=== PATIENT | female | born 1940 | race Caucasian/White ===

== ENCOUNTER 2017-12-29 13:35 | Inpatient (IN) ==
--- NOTE | 2017-12-29 15:00 | Emergency Department Note ---
Disposition Clinical Impression: Shortness of breath, NSTEMI (non-ST elevated myocardial infarction) Disposition: Admitted As Inpatient Condition: Fair General Adult HPI - General Chief complaint: ED Shortness of Breath/Dyspnea Stated complaint: JOEL Time Seen by Provider: 12/29/17 14:33 Source: patient - History of Present Illness Pain Scale: 0 - Related Data Home Medications Medication Instructions Recorded Confirmed Aspirin Enteric Coated [Aspirin EC] 81 mg PO DAILY 12/29/17 12/29/17 Calcium Carbonate [Calcium] 600 mg PO BID 12/29/17 12/29/17 Flaxseed Oil [[place]-3 Flaxseed Oil] 1,000 mg PO DAILY 12/29/17 12/29/17 Glucosamine Sulfate Dipot Chlr 1,000 mg PO DAILY 12/29/17 12/29/17 [Glucosamine] Losartan Potassium [Cozaar] 50 mg PO DAILY 12/29/17 12/29/17 Multivitamin [One Daily 1 each PO DAILY 12/29/17 12/29/17 Multivitamin] Simvastatin [Zocor] 20 mg PO HS 12/29/17 12/29/17 Allergies Allergy/AdvReac Type Severity Reaction Status Date / Time Penicillins Allergy Hives Verified 04/02/17 11:08 acetaminophen [From Percocet] AdvReac Vomiting Verified 04/02/17 11:08 celecoxib [From Celebrex] AdvReac Palpitation Verified 04/02/17 11:08 s clindamycin AdvReac Heartburn Verified 04/02/17 11:08 Erythromycin Base AdvReac Heartburn Verified 04/02/17 11:08 hydrocodone [From Vicodin] AdvReac Vomiting Verified 04/02/17 11:08 naproxen [From Naprosyn] AdvReac Palpitation Verified 04/02/17 11:08 s NSAIDS (Non-Steroidal AdvReac Palpitation Verified 04/02/17 11:08 Anti-Inflamma s Oxycodone [From Percocet] AdvReac Vomiting Verified 04/02/17 11:08 propoxyphene AdvReac Vomiting Verified 04/02/17 11:08 [From Darvocet-N] Past Medical History - Past Medical History Medical history: Reports: hyperlipidemia, hypertension, other Surgical history: Reports: cataract, orthopedic, other, other Psychiatric history: Reports: no psych history - Social History Smoking Status: Never smoker Alcohol use: Reports: none Drug use: Reports: none Physical Exam - General General appearance: alert, in no apparent distress Course Vital Signs Temperature 97.6 F 12/29/17 13:37 Pulse Rate 72 12/29/17 13:37 Respiratory Rate 16 12/29/17 13:37 Blood Pressure 189/92 12/29/17 13:37 O2 Sat by Pulse Oximetry 95 12/29/17 13:37 Temperature 97.9 F 12/31/17 11:00 Pulse Rate 70 12/31/17 11:00 Respiratory Rate 16 12/31/17 11:00 Blood Pressure 135/72 12/31/17 11:00 O2 Sat by Pulse Oximetry 97 12/31/17 11:00 Oxygen Delivery Oxygen Delivery Room Air Medical Decision Making - Lab Data Result diagrams: 12/31/17 04:21 12/31/17 04:21 Lab Results 12/29/17 12/29/17 12/29/17 Range/Units 15:02 15:02 15:05 WBC 7.7 (4.3-11.1) K/mcL RBC 4.27 (3.82-4.97) M/mcL Hgb 13.6 (11.5-15.4) g/dL Hct 40.6 (35.3-44.9) % MCV 95.1 (83.0-100.0) fL MCH 31.9 (28.0-33.3) pg MCHC 33.5 (31.6-35.5) g/dL RDW 12.8 (11.5-14.5) % Plt Count 151 (140-400) K/mcL MPV 10.6 (9.4-12.4) fL Immature Gran % 0.4 (0-4) % Seg Neutrophils % 48.5 % Lymphocytes % 36.5 % Monocytes % 12.6 % Eosinophils % 1.6 % Basophils % 0.4 % Neutrophils # 3.7 (1.6-8.9) K/mcL Lymphocytes # 2.8 (0.6-4.6) K/mcL Monocytes # 1.0 (0.0-1.3) K/mcL Eosinophils # 0.1 (0.0-0.6) K/mcL Basophils # 0.0 (0.0-0.2) K/mcL Nucleated RBCs/100 WBC (0) /100 WBC PT 12.0 (9.4-12.1) Seconds INR 1.1 APTT (26.0-36.0) Seconds Heparin Anti-Xa, Unfract Sodium 140 (136-145) mEq/L Potassium 4.1 (3.5-5.1) mEq/L Chloride 105 (98-107) mEq/L Carbon Dioxide 25 (23-29) mEq/L BUN 16 (8-23) mg/dL Creatinine 0.65 (0.60-1.20) mg/dL Est GFR ( Amer) > 60 (> 60) Est GFR (Non-Af Amer) > 60 (> 60) BUN/Creatinine Ratio 25 (6-26) Glucose 122 H (70-105) mg/dL Calculated Osmolality 292 (280-300) Calcium 9.8 (8.6-10.3) mg/dL Magnesium (1.6-2.6) mg/dL Troponin I 0.04 H* (< 0.04) ng/mL B-Natriuretic Peptide (Less than 100) pg/mL Triglycerides (< 150) mg/dL Cholesterol (< 200) mg/dL LDL Cholesterol, Calc (0-99) mg/dL VLDL Cholesterol, Calc (< 31) mg/dL HDL Cholesterol (40-59) mg/dL Cholesterol/HDL Ratio (0-4.9) 12/29/17 12/29/17 12/29/17 Range/Units 15:05 21:09 21:09 WBC 6.5 (4.3-11.1) K/mcL RBC 4.23 (3.82-4.97) M/mcL Hgb 13.4 (11.5-15.4) g/dL Hct 40.8 (35.3-44.9) % MCV 96.5 (83.0-100.0) fL MCH 31.7 (28.0-33.3) pg MCHC 32.8 (31.6-35.5) g/dL RDW 12.7 (11.5-14.5) % Plt Count 158 (140-400) K/mcL MPV 10.0 (9.4-12.4) fL Immature Gran % (0-4) % Seg Neutrophils % % Lymphocytes % % Monocytes % % Eosinophils % % Basophils % % Neutrophils # (1.6-8.9) K/mcL Lymphocytes # (0.6-4.6) K/mcL Monocytes # (0.0-1.3) K/mcL Eosinophils # (0.0-0.6) K/mcL Basophils # (0.0-0.2) K/mcL Nucleated RBCs/100 WBC (0) /100 WBC PT (9.4-12.1) Seconds INR APTT (26.0-36.0) Seconds Heparin Anti-Xa, Unfract Sodium (136-145) mEq/L Potassium (3.5-5.1) mEq/L Chloride (98-107) mEq/L Carbon Dioxide (23-29) mEq/L BUN (8-23) mg/dL Creatinine (0.60-1.20) mg/dL Est GFR ( Amer) (> 60) Est GFR (Non-Af Amer) (> 60) BUN/Creatinine Ratio (6-26) Glucose (70-105) mg/dL Calculated Osmolality (280-300) Calcium (8.6-10.3) mg/dL Magnesium (1.6-2.6) mg/dL Troponin I 0.06 H* (< 0.04) ng/mL B-Natriuretic Peptide 160 H (Less than 100) pg/mL Triglycerides (< 150) mg/dL Cholesterol (< 200) mg/dL LDL Cholesterol, Calc (0-99) mg/dL VLDL Cholesterol, Calc (< 31) mg/dL HDL Cholesterol (40-59) mg/dL Cholesterol/HDL Ratio (0-4.9) 12/29/17 12/30/17 12/30/17 Range/Units 21:09 04:42 04:42 WBC 7.6 (4.3-11.1) K/mcL RBC 4.15 (3.82-4.97) M/mcL Hgb 13.1 (11.5-15.4) g/dL Hct 40.0 (35.3-44.9) % MCV 96.4 (83.0-100.0) fL MCH 31.6 (28.0-33.3) pg MCHC 32.8 (31.6-35.5) g/dL RDW 12.7 (11.5-14.5) % Plt Count 166 (140-400) K/mcL MPV 10.2 (9.4-12.4) fL Immature Gran % 0.3 (0-4) % Seg Neutrophils % 37.2 % Lymphocytes % 48.6 % Monocytes % 10.9 % Eosinophils % 2.6 % Basophils % 0.4 % Neutrophils # 2.9 (1.6-8.9) K/mcL Lymphocytes # 3.7 (0.6-4.6) K/mcL Monocytes # 0.8 (0.0-1.3) K/mcL Eosinophils # 0.2 (0.0-0.6) K/mcL Basophils # 0.0 (0.0-0.2) K/mcL Nucleated RBCs/100 WBC 0.3 H (0) /100 WBC PT 11.4 (9.4-12.1) Seconds INR 1.1 APTT 28.9 (26.0-36.0) Seconds Heparin Anti-Xa, Unfract Sodium (136-145) mEq/L Potassium (3.5-5.1) mEq/L Chloride (98-107) mEq/L Carbon Dioxide (23-29) mEq/L BUN (8-23) mg/dL Creatinine (0.60-1.20) mg/dL Est GFR ( Amer) (> 60) Est GFR (Non-Af Amer) (> 60) BUN/Creatinine Ratio (6-26) Glucose (70-105) mg/dL Calculated Osmolality (280-300) Calcium (8.6-10.3) mg/dL Magnesium (1.6-2.6) mg/dL Troponin I 0.04 H* (< 0.04) ng/mL B-Natriuretic Peptide (Less than 100) pg/mL Triglycerides (< 150) mg/dL Cholesterol (< 200) mg/dL LDL Cholesterol, Calc (0-99) mg/dL VLDL Cholesterol, Calc (< 31) mg/dL HDL Cholesterol (40-59) mg/dL Cholesterol/HDL Ratio (0-4.9) 12/30/17 12/30/17 Range/Units 04:42 04:42 WBC (4.3-11.1) K/mcL RBC (3.82-4.97) M/mcL Hgb (11.5-15.4) g/dL Hct (35.3-44.9) % MCV (83.0-100.0) fL MCH (28.0-33.3) pg MCHC (31.6-35.5) g/dL RDW (11.5-14.5) % Plt Count (140-400) K/mcL MPV (9.4-12.4) fL Immature Gran % (0-4) % Seg Neutrophils % % Lymphocytes % % Monocytes % % Eosinophils % % Basophils % % Neutrophils # (1.6-8.9) K/mcL Lymphocytes # (0.6-4.6) K/mcL Monocytes # (0.0-1.3) K/mcL Eosinophils # (0.0-0.6) K/mcL Basophils # (0.0-0.2) K/mcL Nucleated RBCs/100 WBC (0) /100 WBC PT (9.4-12.1) Seconds INR APTT > 360.0 H* D (26.0-36.0) Seconds Heparin Anti-Xa, Unfract TNP Sodium 138 (136-145) mEq/L Potassium 4.5 (3.5-5.1) mEq/L Chloride 105 (98-107) mEq/L Carbon Dioxide 24 (23-29) mEq/L BUN 16 (8-23) mg/dL Creatinine 0.61 (0.60-1.20) mg/dL Est GFR ( Amer) > 60 (> 60) Est GFR (Non-Af Amer) > 60 (> 60) BUN/Creatinine Ratio 26 (6-26) Glucose 124 H (70-105) mg/dL Calculated Osmolality 289 (280-300) Calcium 9.4 (8.6-10.3) mg/dL Magnesium 2.0 (1.6-2.6) mg/dL Troponin I (< 0.04) ng/mL B-Natriuretic Peptide (Less than 100) pg/mL Triglycerides 102 (< 150) mg/dL Cholesterol 149 (< 200) mg/dL LDL Cholesterol, Calc 80 (0-99) mg/dL VLDL Cholesterol, Calc 20 (< 31) mg/dL HDL Cholesterol 49 (40-59) mg/dL Cholesterol/HDL Ratio 3.0 (0-4.9) Attestation Statement - Attestation Attestation: I examined this patient and my medical decision-making was reviewed with the Resident Physician. I agree with the documented findings, disposition and treatment plan as described except to the extent set forth below. [id number] time provided Patient arrives complaining of intermittent dyspnea over the past several weeks. She does not appear in any acute distress on initial exam. Triage vitals reviewed by me
[2017-12-29 15:26] LABS: Basophils % 0.4 %; Eosinophils # 0.1 K/mcL (0.0-0.6); Eosinophils % 1.6 %; Hematocrit 40.6 % (35.3-44.9); Hemoglobin 13.6 g/dL (11.5-15.4); Immature Granulocytes % 0.4 % (0-4); Lymphocytes # 2.8 K/mcL (0.6-4.6); Lymphocytes % 36.5 %; Mean Corpuscular HGB Conc 33.5 g/dL (31.6-35.5); Mean Corpuscular Hemoglobin 31.9 pg (28.0-33.3); Mean Corpuscular Volume 95.1 fL (83.0-100.0); Mean Platelet Volume 10.6 fL (9.4-12.4); Monocytes % 12.6 %; Neutrophils # 3.7 K/mcL (1.6-8.9); Platelet Count 151 K/mcL (140-400); Red Blood Count 4.27 M/mcL (3.82-4.97); Red Cell Distribution Width 12.8 % (11.5-14.5); Segmented Neutrophils % 48.5 %
[2017-12-29 15:41] LABS: INR 1.1
[2017-12-29 15:43] LABS: Troponin I 0.04 ng/mL (< 0.04)
[2017-12-29 15:44] LABS: BUN/Creatinine Ratio 25 (6-26); Blood Urea Nitrogen 16 mg/dL (8-23); Calcium 9.8 mg/dL (8.6-10.3); Carbon Dioxide 25 mEq/L (23-29); Chloride 105 mEq/L (98-107); Glucose 122 mg/dL (70-105); Osmolality,Calculated 292 (280-300); Potassium 4.1 mEq/L (3.5-5.1); Sodium 140 mEq/L (136-145); eGFR For African Americans > 60 (> 60); eGFR For Non-African Americans > 60 (> 60)
--- NOTE | 2017-12-29 16:48 | Emergency Department Note ---
Disposition Clinical Impression: Shortness of breath, NSTEMI (non-ST elevated myocardial infarction) Disposition: Admitted As Inpatient Condition: Fair Referrals: Victoria Savage MD [Primary Care Provider] - Forms: ED Satisfaction Letter Time of Disposition: 16:00 SOB HPI - General Chief Complaint: ED Shortness of Breath/Dyspnea Stated Complaint: JOEL Time Seen by Provider: 12/29/17 14:33 Source: patient Mode of arrival: ambulatory Limitations: no limitations Vital Signs Reviewed: Yes - History of Present Illness Saloni Hernández is a 77 year old female presented with SOB on minimal exertion that began 1 month ago. The patient has been worked up as an outpatient by her PCP with echo, EKG, CXR, and PFTs, all of which were within normal limits. The next step in evaluation was to be stress test and holter monitor. The patient additionally complains of chest and bilateral arm heaviness. She noted her pulse ox to be in the 70s at home. - Related Data Home Medications Medication Instructions Recorded Confirmed Aspirin Enteric Coated [Aspirin EC] 81 mg PO DAILY 12/29/17 12/29/17 Calcium Carbonate [Calcium] 600 mg PO BID 12/29/17 12/29/17 Flaxseed Oil [[place]-3 Flaxseed Oil] 1,000 mg PO DAILY 12/29/17 12/29/17 Glucosamine Sulfate Dipot Chlr 1,000 mg PO DAILY 12/29/17 12/29/17 [Glucosamine] Losartan Potassium [Cozaar] 50 mg PO DAILY 12/29/17 12/29/17 Multivitamin [One Daily 1 each PO DAILY 12/29/17 12/29/17 Multivitamin] Simvastatin [Zocor] 20 mg PO HS 12/29/17 12/29/17 Allergies Allergy/AdvReac Type Severity Reaction Status Date / Time Penicillins Allergy Hives Verified 04/02/17 11:08 acetaminophen [From Percocet] AdvReac Vomiting Verified 04/02/17 11:08 celecoxib [From Celebrex] AdvReac Palpitation Verified 04/02/17 11:08 s clindamycin AdvReac Heartburn Verified 04/02/17 11:08 Erythromycin Base AdvReac Heartburn Verified 04/02/17 11:08 hydrocodone [From Vicodin] AdvReac Vomiting Verified 04/02/17 11:08 naproxen [From Naprosyn] AdvReac Palpitation Verified 04/02/17 11:08 s NSAIDS (Non-Steroidal AdvReac Palpitation Verified 04/02/17 11:08 Anti-Inflamma s Oxycodone [From Percocet] AdvReac Vomiting Verified 04/02/17 11:08 propoxyphene AdvReac Vomiting Verified 04/02/17 11:08 [From Darvocet-N] Constitutional: Reports: weakness. Denies: fever, chills Cardiovascular: Reports: chest pain (heaviness), dyspnea on exertion, other Respiratory: Reports: cough, dyspnea Neurological: Denies: headache Past Medical History - Past Medical History Medical history: Reports: hyperlipidemia, hypertension, other Surgical history: Reports: cataract, orthopedic, other, other Psychiatric history: Reports: no psych history - Social History Smoking Status: Never smoker Alcohol use: Reports: none Drug use: Reports: none Physical Exam - General Limitations: no limitations General appearance: alert, in no apparent distress, obese - Head Head exam: atraumatic, normocephalic - Respiratory Respiratory exam: Present: normal lung sounds bilaterally. Absent: respiratory distress, accessory muscle use - Cardiovascular Cardiovascular exam: Present: regular rate, normal rhythm, normal heart sounds, +S1, +S2 - Abdominal Exam Abdominal exam: Present: soft, Non-Tender - Extremities Exam Extremities exam: Present: normal inspection. Absent: pedal edema - Neurological Exam Neurological exam: Present: alert, oriented X3 - Psychiatric Psychiatric exam: Present: normal affect, normal mood - Skin Skin exam: Present: warm, dry Course Course Narrative: Patient presents with shortness of breath that has failed outpatient therapy and evaluation. Previously evaluated with EKG, CXR, Echo, and PFTs, all of which were within normal limits. Next steps were to be stress test and holter monitor, but patient presented to ER first with increasing SOB and chest and arm "heaviness." BMP, BNP, CBC, troponin, and CXR ordered. EKG showed sinus rhythm with PACs. Labs showed BNP of 116 and troponin of 0.04. CXR was normal. Concern for NSTEMI. Case was discussed with admitting hospitalist, Dr. Fuchs and patient was admitted for further evaluation. Vital Signs Temperature 97.6 F 12/29/17 13:37 Pulse Rate 72 12/29/17 13:37 Respiratory Rate 16 12/29/17 13:37 Blood Pressure 189/92 12/29/17 13:37 O2 Sat by Pulse Oximetry 95 12/29/17 13:37 Temperature 97.6 F 12/29/17 13:37 Pulse Rate 62 12/29/17 15:24 Respiratory Rate 14 12/29/17 15:24 Blood Pressure 144/100 12/29/17 15:24 O2 Sat by Pulse Oximetry 94 12/29/17 15:24 Oxygen Delivery Oxygen Delivery Room Air Shortness of Breath/Dyspnea - Lab Data Result diagrams: 12/29/17 15:02 12/29/17 15:02 Lab Results 12/29/17 12/29/17 12/29/17 Range/Units 15:02 15:02 15:05 WBC 7.7 (4.3-11.1) K/mcL RBC 4.27 (3.82-4.97) M/mcL Hgb 13.6 (11.5-15.4) g/dL Hct 40.6 (35.3-44.9) % MCV 95.1 (83.0-100.0) fL MCH 31.9 (28.0-33.3) pg MCHC 33.5 (31.6-35.5) g/dL RDW 12.8 (11.5-14.5) % Plt Count 151 (140-400) K/mcL MPV 10.6 (9.4-12.4) fL Immature Gran % 0.4 (0-4) % Seg Neutrophils % 48.5 % Lymphocytes % 36.5 % Monocytes % 12.6 % Eosinophils % 1.6 % Basophils % 0.4 % Neutrophils # 3.7 (1.6-8.9) K/mcL Lymphocytes # 2.8 (0.6-4.6) K/mcL Monocytes # 1.0 (0.0-1.3) K/mcL Eosinophils # 0.1 (0.0-0.6) K/mcL Basophils # 0.0 (0.0-0.2) K/mcL PT 12.0 (9.4-12.1) Seconds INR 1.1 Sodium 140 (136-145) mEq/L Potassium 4.1 (3.5-5.1) mEq/L Chloride 105 (98-107) mEq/L Carbon Dioxide 25 (23-29) mEq/L BUN 16 (8-23) mg/dL Creatinine 0.65 (0.60-1.20) mg/dL Est GFR ( Amer) > 60 (> 60) Est GFR (Non-Af Amer) > 60 (> 60) BUN/Creatinine Ratio 25 (6-26) Glucose 122 H (70-105) mg/dL Calculated Osmolality 292 (280-300) Calcium 9.8 (8.6-10.3) mg/dL Troponin I 0.04 H* (< 0.04) ng/mL B-Natriuretic Peptide (Less than 100) pg/mL 12/29/17 Range/Units 15:05 WBC (4.3-11.1) K/mcL RBC (3.82-4.97) M/mcL Hgb (11.5-15.4) g/dL Hct (35.3-44.9) % MCV (83.0-100.0) fL MCH (28.0-33.3) pg MCHC (31.6-35.5) g/dL RDW (11.5-14.5) % Plt Count (140-400) K/mcL MPV (9.4-12.4) fL Immature Gran % (0-4) % Seg Neutrophils % % Lymphocytes % % Monocytes % % Eosinophils % % Basophils % % Neutrophils # (1.6-8.9) K/mcL Lymphocytes # (0.6-4.6) K/mcL Monocytes # (0.0-1.3) K/mcL Eosinophils # (0.0-0.6) K/mcL Basophils # (0.0-0.2) K/mcL PT (9.4-12.1) Seconds INR Sodium (136-145) mEq/L Potassium (3.5-5.1) mEq/L Chloride (98-107) mEq/L Carbon Dioxide (23-29) mEq/L BUN (8-23) mg/dL Creatinine (0.60-1.20) mg/dL Est GFR ( Amer) (> 60) Est GFR (Non-Af Amer) (> 60) BUN/Creatinine Ratio (6-26) Glucose (70-105) mg/dL Calculated Osmolality (280-300) Calcium (8.6-10.3) mg/dL Troponin I (< 0.04) ng/mL B-Natriuretic Peptide 160 H (Less than 100) pg/mL
[2017-12-29] MEDS ORDERED: Naloxone 0.4 MG/ML INJ IVP PRN (18:05)
--- NOTE | 2017-12-29 18:23 | Internal Med History&Physical ---
Date of Encounter: 12/29/17 Time of Encounter: 18:13 Assessment and Plan (1) Chest pain Current visit: Yes Status: Acute 1 patient has been experiencing chest pain on exertion, relieved with rest dissociate symptoms of shortness of breath. She reports that her SPO2 was 70% home it has been 94-96% on room air. Troponin was 0.04 we will continue to trend second troponin comes back elevated we will initiate on heparin drip 2 she did have an echo performed 10/09/2017 Impressions: LVEF 60%. Mild left ventricular diastolic dysfunction. Normal right ventricular structure and function. No significant valvular dysfunction. No pulmonary hypertension. Continuous cardiac monitoring we will continue with beta khadar and statin ASA Nitroglycerin as needed for chest pain Obtain CTA to rule out any possible PE since patient has been experiencing chest pain shortness of breath and spo2 low We will make nothing by mouth after midnight for a possible intervention in a.m. Consult cardiology as needed Patient was not given ASA in ED we will give 4 Baby ASA now Qualifiers: Chest pain type: unspecified Qualified Code(s): R07.9 - Chest pain, unspecified (2) Elevated troponin Current visit: Yes Status: Acute 1 she has been experiencing some chest pain first troponin was slightly elevated 0.04 we will continue to trend if elevated will will initiate on a heparin drip (3) HTN (hypertension) Current visit: No Status: Chronic continue with home medication losartan Qualifiers: Hypertension type: essential hypertension Qualified Code(s): I10 - Essential (primary) hypertension (4) Shortness of breath Current visit: Yes Status: Acute 1 patient has been expressing shortness of breath for some time it appears she has had a workup in September over the past month or shortness of breath has worsened. She is unable to ambulate short distance distances without becoming short of breath and having to rest. She states she checked her SPO2 at home and it was 70% on room air. Here she has been 93-96% on room air. Patient denies any past respiratory issues no COPD asthma emphysema. She does not smoke and has never smoked We will obtain a CTA to rule out possibility of PE Oxygen as needed to maintain SPO2 greater than 92% (5) DVT prophylaxis Current visit: Yes Status: Acute Heparin subcutaneous Internal Medicine - H&P: HPI Chief complaint: CP palpitation,SOB Admitted From: Emergency Dept Plans for Post Hospital Care: Home History of present illness: Ms. Hernández is a 77 year old female past medical history of hypertension hyperlipidemia. According to the patient she has been experiencing increasing shortness of breath on exertion that began approximately September 2017. She was evaluated by her PCP and had a outpatient workup consisting of an echo chest x-ray and PFTs all which were within normal limits. The next step was to apply Holter monitor, and perform a stress test. According to the patient over the past month she has been experiencing palpitations which she describes as flutters. They come and go and last only a few seconds. She denies any lightheadedness during these episodes. She does have shortness of breath at times during these episodes. On Friday she was attempting to get out of her bed and walk across the room when she began to experience increasing shortness of breath as well as midsternal chest pressure which was nonradiating as well as bilateral arm heaviness. The symptoms are aggravated with exertion and they were relieved with rest. She states that she did check her pulse ox at home and it was around 70%. She denies any previous cardiac events and has not had any workup in several years. She said she had a stress test several years ago in [place]. She denies any asthma emphysema or COPD. She is not a smoker. His symptoms continued off and on throughout the weekend she presented to [facility] ED for evaluation. She does admit to having episodes of twinges in her chest that lasted a few seconds however she associated this to anxiety on her way to the emergency department. According to ER records lab work was obtained and an did remove feel a troponin which was slightly elevated rest of her lab work was within normal limits chest x-ray with no acute process. EKG does show sinus rhythm with some PACs no ST-T wave abnormalities. Upon assessment patient denies any chest pain or shortness of breath this time. On the monitor. She does have some PACs her oxygen saturation was 95-96% on room air. She has been admitted for further workup evaluation. I did review his case with Dr. Fuchs who agrees with plan Past Med Surg Social Fam HX - Past Medical History Medical history: hyperlipidemia, hypertension, other Psychiatric history: no psych history - Past Surgical History Surgical History: cataract, orthopedic, other, other - Social History Smoking Status: Never smoker Alcohol use: none Drug use: none - Family History Mother Living Status: Father Living Status: Age at : 66 Cause of : CA Sister Hx Family Cancer: Yes (tonsil) Brother Hx Family Cancer: Yes (lung) Internal Medicine - H&P: Meds Aspirin Enteric Coated [Aspirin EC] 81 mg PO DAILY 12/29/17 [History] Calcium Carbonate [Calcium] 600 mg PO BID 12/29/17 [History] Flaxseed Oil [[place]-3 Flaxseed Oil] 1,000 mg PO DAILY 12/29/17 [History] Glucosamine Sulfate Dipot Chlr [Glucosamine] 1,000 mg PO DAILY 12/29/17 [History ] Losartan Potassium [Cozaar] 50 mg PO DAILY 12/29/17 [History] Multivitamin [One Daily Multivitamin] 1 each PO DAILY 12/29/17 [History] Simvastatin [Zocor] 20 mg PO HS 12/29/17 [History] 3 Allergy/AdvReac Type Severity Reaction Status Date / Time Penicillins Allergy Hives Verified 04/02/17 11:08 acetaminophen [From Percocet] AdvReac Vomiting Verified 04/02/17 11:08 celecoxib [From Celebrex] AdvReac Palpitation Verified 04/02/17 11:08 s clindamycin AdvReac Heartburn Verified 04/02/17 11:08 Erythromycin Base AdvReac Heartburn Verified 04/02/17 11:08 hydrocodone [From Vicodin] AdvReac Vomiting Verified 04/02/17 11:08 naproxen [From Naprosyn] AdvReac Palpitation Verified 04/02/17 11:08 s NSAIDS (Non-Steroidal AdvReac Palpitation Verified 04/02/17 11:08 Anti-Inflamma s Oxycodone [From Percocet] AdvReac Vomiting Verified 04/02/17 11:08 propoxyphene AdvReac Vomiting Verified 04/02/17 11:08 [From Darvocet-N] All Systems PM: A 10-system review of systems was performed and is negative for pertinent findings except as documented above in the HPI. - Constitutional Constitutional: no chills, no fever(s), no night sweats - EENT Eyes: no change in vision, no discharge, no pain, no photophobia Nose, mouth and throat: no dysphagia, no nasal discharge, no neck pain, no sore throat - Cardiovascular Cardiovascular ROS IM: chest pain, dyspnea on exertion, edema, palpitations - Respiratory Respiratory: dyspnea on exertion, no cough, no dyspnea, no wheezing, no excessive phlegm production - Gastrointestinal Gastrointestinal: no abdominal pain, no diarrhea, no hematemesis, no hematochezia, no melena, no nausea, no vomiting - Genitourinary Genitourinary: no change in urinary stream, no dysuria, no flank pain, no hematuria - Musculoskeletal Musculoskeletal ROS IM: no numbness, no tingling - Integumentary Integumentary IM: no rash, no unusual bruising - Neurological Neurological ROS: no confusion, no convulsions, no focal weakness, no numbness, no tingling, no tremor(s) - Hematologic/Lymphatic Hematologic/Lymphatic: no easy bruising - Constitutional Vitals: Temp Pulse Resp BP Pulse Ox 97.6 F 64 16 153/83 94 12/29/17 13:37 12/29/17 17:22 12/29/17 17:22 12/29/17 17:22 12/29/17 17:22 General appearance: Present: A&O X 3, answers questions appropriately - Head Head exam: Present: atraumatic, normocephalic - Eye Eye exam: Present: PERRL, conjuntiva pink, sclera anicteric Pupils: Present: PERRL - Neck Neck exam general surgery: Present: supple, trachea midline. Absent: lymphadenopathy - Respiratory Respiratory exam: Present: CTAB. Absent: accessory muscle use, rales, rhonchi, wheezes - Cardiovascular Cardiovascular exam: Present: RRR, +S1, +S2. Absent: diastolic murmur, gallop, rubs, systolic murmur - GI/Abdominal GI/Abdominal exam: Present: normal bowel sounds, soft, no peritoneal signs. Absent: distended, tenderness - Extremities Exam Extremities exam: Present: pedal edema, warm, radial pulses palpable and symmetrical. Absent: calf tenderness, cyanotic - Neurological Exam Neurological exam: Present: CN II-XII intact, oriented X3, no focal deficits. Absent: pronater drift, facial droop, speech deficit - Skin Skin exam: Present: dry, intact Internal Med - H&P Results - Labs CBC & Chem 7: 12/29/17 15:02 12/29/17 15:02 - EKG Data EKG shows normal: sinus rhythm Rate: normal - EKG Data Prior EKG available for review: yes Interpretation IM: normal EKG - Diagnostic Studies Other Images Additional comments: Chest X-Ray 12/29/17 13:43 IMPRESSION: Normal chest x-ray D/ / Alfredo Agee MD / Alfredo Agee MD Interpreting Provider: Alfredo Agee MD
[2017-12-29] MEDS ORDERED: Nitroglycerin 0.4 MG TAB.SUBL SL PRN (18:44)
[2017-12-29] MEDS ORDERED: Aspirin 81 MG TAB.CHEW PO ONE (19:03)
[2017-12-29] MEDS ORDERED: *HR* Heparin 5,000 UNIT/ML VIAL IVP ONE (20:43)
[2017-12-29] MEDS ORDERED: *HR* Heparin 5,000 UNIT/ML VIAL IVP PRN ×2 (20:43)
[2017-12-29] MEDS ORDERED: Heparin 25,000 UNIT/500 ML D5W 25,000 UNIT/500 ML BAG IVC SCH (20:45)
[2017-12-29 21:40] LABS: Hematocrit 40.8 % (35.3-44.9); Hemoglobin 13.4 g/dL (11.5-15.4); Mean Corpuscular HGB Conc 32.8 g/dL (31.6-35.5); Mean Corpuscular Hemoglobin 31.7 pg (28.0-33.3); Mean Corpuscular Volume 96.5 fL (83.0-100.0); Platelet Count 158 K/mcL (140-400); Red Blood Count 4.23 M/mcL (3.82-4.97); Red Cell Distribution Width 12.7 % (11.5-14.5)
[2017-12-29] MEDS: Heparin 25,000 UNIT/500 ML D5W 25,000 UNIT/500 ML BAG IVC SCH (21:40)
[2017-12-29 21:45] LABS: INR 1.1; Prothrombin Time 11.4 Seconds (9.4-12.1)
[2017-12-29 21:48] LABS: Activated Partial Thrombo Time 28.9 Seconds (26.0-36.0)
--- NOTE | 2017-12-29 23:46 | Event Note ---
Date of Encounter: 12/29/17 Time of Encounter: 21:00 Received call regarding CTA results from [facility] for this patient at 21:00. Dr. Richy Loaiza went over results w/me which showed saddle type embolus within the main pulmonary artery extending into bilateral pulmonary arterial branches. Heart is mildly enlarged with RV/LV ratio greater than 1 and reflux of contrast into the liver suggesting right heart strain. Pts. VS included HR 71, RR 16, BP 145/80, SpO2 90% on RA. Called [employer] Consultant inspection machine tender, Dr. Arreguin, and discussed case w/him. He suggested transferring pt. north d/t our lack of ECOS services currently. Discussed case w /Dr. Baum who recommended starting the pt. on standard dose Heparin drip and calling [place] Transfer line. Spoke w/Kristin at [facility] who put Dr. Kim Pierson from [facility] group on a 3-way call.Dr. Pierson stated that based on her current vital signs and information, the pt. was not a candidate for catheter directed thrombolysis. Dr. Pierson stated that ECOS was not necessary for this pt. and recommended that an Echocardiogram be ordered to assess actual right heart strain status and manage w/anticoagulation therapy as we were doing. Echocardiogram ordered and pt. will continue Heparin drip w/monitoring of PT/ INR. Pt. resting comfortably. Will continue supplemental O2 w/titration and SpO2 monitoring. Cardiology consult ordered and to be followed up on in the a.m.
[2017-12-30 04:59] LABS: Basophils % 0.4 %; Eosinophils # 0.2 K/mcL (0.0-0.6); Eosinophils % 2.6 %; Hemoglobin 13.1 g/dL (11.5-15.4); Immature Granulocytes % 0.3 % (0-4); Lymphocytes # 3.7 K/mcL (0.6-4.6); Lymphocytes % 48.6 %; Mean Corpuscular HGB Conc 32.8 g/dL (31.6-35.5); Mean Corpuscular Hemoglobin 31.6 pg (28.0-33.3); Mean Corpuscular Volume 96.4 fL (83.0-100.0); Mean Platelet Volume 10.2 fL (9.4-12.4); Monocytes # 0.8 K/mcL (0.0-1.3); Monocytes % 10.9 %; Neutrophils # 2.9 K/mcL (1.6-8.9); Nucleated Red Blood Cells 0.3 /100 WBC (0); Platelet Count 166 K/mcL (140-400); Red Blood Count 4.15 M/mcL (3.82-4.97); Red Cell Distribution Width 12.7 % (11.5-14.5); Segmented Neutrophils % 37.2 %
[2017-12-30 05:26] LABS: BUN/Creatinine Ratio 26 (6-26); Blood Urea Nitrogen 16 mg/dL (8-23); Calcium 9.4 mg/dL (8.6-10.3); Carbon Dioxide 24 mEq/L (23-29); Chloride 105 mEq/L (98-107); Cholesterol 149 mg/dL (< 200); Glucose 124 mg/dL (70-105); HDL Cholesterol 49 mg/dL (40-59); LDL Cholesterol,Calculated 80 mg/dL (0-99); Osmolality,Calculated 289 (280-300); Potassium 4.5 mEq/L (3.5-5.1); Sodium 138 mEq/L (136-145); Triglycerides 102 mg/dL (< 150); eGFR For African Americans > 60 (> 60); eGFR For Non-African Americans > 60 (> 60)
[2017-12-30] MEDS ORDERED: *HR* Heparin 5,000 UNIT/ML VIAL SQ SCH (06:00)
[2017-12-30] MEDS ORDERED: *HR* Enoxaparin 40 MG/0.4 ML SYRINGE SQ SCH (07:00)
[2017-12-30 08:02] LABS: Activated Partial Thrombo Time > 360.0 Seconds (26.0-36.0)
[2017-12-30] MEDS: Aspirin Enteric Coated 81 MG Tablet PO SCH (09:21)
--- NOTE | 2017-12-30 10:00 | Cardiology Consult Note ---
Date of Encounter: 12/30/17 Time of Encounter: 10:00 Assessment and Plan (1) Saddle embolus of pulmonary artery Current Visit: Yes Status: Acute CTA revealed saddle type embolus within main pulmonary artery extending into bilateral pulmonary arterial branches. Findings suggestive of right heart strain. Hospitalist discussed with [place] to consider transfer for EKOS PE therapy. [place] physician did not think this was necessary. TTE ordered to further evaluate for right heart strain. BP stable, currently on 2L NC, saturating well. On heparin gtt. LE dopplers pending as well to evaluate for DVT. Further recommendations pending test results. assisted oral AC will be warranted--defer to hospitalist for management of this. Qualifiers: Chronicity: acute Acute cor pulmonale presence: with acute cor pulmonale Qualified Code(s): I26.02 - Saddle embolus of pulmonary artery with acute cor pulmonale (2) Elevated troponin Current Visit: Yes Status: Acute Troponins 0.04, 0.06, 0.04 in setting of saddle PE. Suspect demand ischemia, nondiagnostic for ACS. On heparin gtt for PE. TTE 09/2017 EF preserved. Repeat TTE pending. (3) HTN (hypertension) Current Visit: No Status: Chronic Elevated BP reading this AM prior to meds. Otherwise, BP has been stable. Continue to monitor. Qualifiers: Hypertension type: essential hypertension Qualified Code(s): I10 - Essential (primary) hypertension Discussion w patient/family: The assessment and plan as outlined above was discussed with the patient and/or family members who expressed understanding and agreement. All questions were answered. Thank you for involving us in the care of your patient. Please call with any questions. I will discuss all the above with Dr. Arreguin and make changes as necessary. History of Present Illness Consult date: 12/30/17 Requesting physician: Gwen Healy Consult reason: PE, right heart strain Chief complaint: dyspnea History of present illness: Ms. Hernández is a 77 year old female with PMH of HTN, HLD. Pt presented with worsening dyspnea and hypoxia, reported SpO2 of 70% at home. Per pt, has been experiencing increasing dyspnea since September 2017. She was evaluated by her PCP and had a outpatient workup consisting of an echo chest x-ray and PFTs all which were within normal limits. CTA of chest in ED revealed saddle type embolus within the main pulmonary artery extending into bilateral pulmonary arterial branches. Heart mildly enlarged with RV/LV ratio greater than 1 and reflux of contrast into lung suggestive of RV strain. Cardiology was consulted for further recommendations. Dr. Arreguin initially recommended transfer so that EKOS PE therapy could be considered. Hospitalist discussed with [place] physician, who did not think this was necessary. TTE has been ordered to further evaluate for right heart strain. Troponins borderline 0.04, 0.06, 0.04. Pt denies chest pain. No hx of CAD. Pt also reports RLE extremity swelling this past week, took Lasix and swelling improved. TTE and BLE dopplers pending. Past Med Surg Social Fam HX - Past Medical History Medical history: hyperlipidemia, hypertension, other Psychiatric history: no psych history - Past Surgical History Surgical History: cataract, orthopedic, other, other - Social History Smoking Status: Never smoker Alcohol use: none Drug use: none - Family History Father Hx Family Cardiac Disorders: Yes Mother Living Status: Sister Hx Family Cancer: Yes (tonsil) Brother Hx Family Cancer: Yes (lung) Medications and Allergies Aspirin Enteric Coated [Aspirin EC] 81 mg PO DAILY 12/29/17 [History] Calcium Carbonate [Calcium] 600 mg PO BID 12/29/17 [History] Flaxseed Oil [Morral-3 Flaxseed Oil] 1,000 mg PO DAILY 12/29/17 [History] Glucosamine Sulfate Dipot Chlr [Glucosamine] 1,000 mg PO DAILY 12/29/17 [History ] Losartan Potassium [Cozaar] 50 mg PO DAILY 12/29/17 [History] Multivitamin [One Daily Multivitamin] 1 each PO DAILY 12/29/17 [History] Simvastatin [Zocor] 20 mg PO HS 12/29/17 [History] 3 Allergy/AdvReac Type Severity Reaction Status Date / Time Penicillins Allergy Hives Verified 04/02/17 11:08 acetaminophen [From Percocet] AdvReac Vomiting Verified 04/02/17 11:08 celecoxib [From Celebrex] AdvReac Palpitation Verified 04/02/17 11:08 s clindamycin AdvReac Heartburn Verified 04/02/17 11:08 Erythromycin Base AdvReac Heartburn Verified 04/02/17 11:08 hydrocodone [From Vicodin] AdvReac Vomiting Verified 04/02/17 11:08 naproxen [From Naprosyn] AdvReac Palpitation Verified 04/02/17 11:08 s NSAIDS (Non-Steroidal AdvReac Palpitation Verified 04/02/17 11:08 Anti-Inflamma s Oxycodone [From Percocet] AdvReac Vomiting Verified 04/02/17 11:08 propoxyphene AdvReac Vomiting Verified 04/02/17 11:08 [From Darvocet-N] All Systems Review: The remainder of the systems were reviewed and are negative - Cardiovascular Cardiovascular: as per HPI, dyspnea at rest, dyspnea on exertion, leg edema - Respiratory Respiratory: dyspnea Physical Examination Vital Signs, Last 4 Hours Temp Pulse Resp BP Pulse Ox 12/30/17 09:22 85 16 162/90 94 12/30/17 07:17 98.5 F 92 14 136/82 93 Vital Signs Temp Pulse Resp BP Pulse Ox 12/30/17 09:22 85 16 162/90 94 12/30/17 07:17 98.5 F 92 14 136/82 93 12/30/17 03:51 97.5 F L 70 17 116/72 94 12/29/17 23:44 98.4 F 94 16 117/71 92 12/29/17 18:44 97.7 F 71 16 145/80 90 12/29/17 17:22 64 16 153/83 94 12/29/17 15:24 62 14 144/100 94 12/29/17 14:48 96 12/29/17 13:37 97.6 F 72 16 189/92 95 Intake and Output 12/29/17 12/30/17 12/30/17 23:59 07:59 15:59 Intake Total 300 / 300 Balance 300 / 300 Intake: IV Fluids 300 / 300 Heparin 25,000 UNIT/500 ML D5W 300 / 300 25,000 unit In 500 ml @ 14 UNIT /KG/HR 31.548 mls/hr IVC . [id number] [facility] Rx#:[id number] Other: Weight 112.672 kg 114.305 kg Patient Weight 12/30/17 23:59 Weight 114.305 kg General: Conversant, No Apparent Distress HEENT: Atraumatic, Normocephaly, Mucus Membranes Moist Neck: No JVD, Normal carotid pulses Cardiac: Reg Rate and Rhythm, Normal S1 and S2, No Murmur Lungs: Normal Breath Sounds, No Wheeze, Rales, Rhonchi Neuro: Alert and responsive, No focal deficits noted Abdomen: Soft, Non-Tender Skin: No rashes noted on visualized skin Musculoskeletal: No Chest Wall Tenderness Extremities: No Clubbing, No Cyanosis, No Edema, Normal Pulses Results 12/30/17 04:42 12/30/17 04:42 Lab Results 12/29/17 12/29/17 12/29/17 21:09 21:09 21:09 WBC 6.5 Hgb 13.4 Hct 40.8 Plt Count 158 INR 1.1 APTT 28.9 Sodium Potassium Chloride Carbon Dioxide BUN Creatinine Glucose Calcium Magnesium Troponin I 0.06 H* 12/30/17 12/30/17 12/30/17 04:42 04:42 04:42 WBC 7.6 Hgb 13.1 Hct 40.0 Plt Count 166 INR APTT Sodium 138 Potassium 4.5 Chloride 105 Carbon Dioxide 24 BUN 16 Creatinine 0.61 Glucose 124 H Calcium 9.4 Magnesium 2.0 Troponin I 0.04 H* 12/30/17 04:42 WBC Hgb Hct Plt Count INR APTT > 360.0 H* D Sodium Potassium Chloride Carbon Dioxide BUN Creatinine Glucose Calcium Magnesium Troponin I Short CBC 12/30/17 12/29/17 12/29/17 Range/Units 04:42 21:09 15:02 WBC 7.6 6.5 7.7 (4.3-11.1) K/mcL Hgb 13.1 13.4 13.6 (11.5-15.4) g/dL Hct 40.0 40.8 40.6 (35.3-44.9) % Plt Count 166 158 151 (140-400) K/mcL Neutrophils # 2.9 3.7 (1.6-8.9) K/mcL BMP 12/30/17 12/29/17 Range/Units 04:42 15:02 Sodium 138 140 (136-145) mEq/L Potassium 4.5 4.1 (3.5-5.1) mEq/L Chloride 105 105 (98-107) mEq/L Carbon Dioxide 24 25 (23-29) mEq/L BUN 16 16 (8-23) mg/dL Creatinine 0.61 0.65 (0.60-1.20) mg/dL Glucose 124 H 122 H (70-105) mg/dL Calcium 9.4 9.8 (8.6-10.3) mg/dL Cardiac Enzymes 12/30/17 12/29/17 12/29/17 Range/Units 04:42 21:09 15:02 Troponin I 0.04 H* 0.06 H* 0.04 H* (< 0.04) ng/mL Impressions Chest X-Ray 12/29/17 13:43 IMPRESSION: Normal chest x-ray D/ / Alfredo Agee MD / Alfredo Agee MD Interpreting Provider: Alfredo Agee MD Chest CTA 12/29/17 18:34 IMPRESSION: Saddle type embolus within the main pulmonary artery extending into bilateral pulmonary arterial branches. Heart is mildly enlarged with RV/LV ratio greater than 1 and reflux of contrast into the liver, suggesting right heart strain. Critical results were called by Dr. Loaiza to Dr. George On 12/29/2017 at 8 p.m. D/ / Richy Loaiza MD / Richy Loaiza MD Interpreting Provider: Richy Loaiza MD Active Medications Aspirin (Aspirin Ec) 81 mg PO DAILY ILANA Stop: 07/01/18 09:01 Last Admin: 12/30/17 09:21 Dose: 81 mg Calcium Carbonate (Tums) 600 mg PO BID ILANA Stop: 06/30/18 21:01 Last Admin: 12/30/17 09:21 Dose: 600 mg Heparin Sodium (Porcine) (Heparin) 7,900 unit 70 unit/kg (7900 unit) IVP Q6HR PRN PRN Reason: SEE COMMENTS Stop: 06/30/18 20:44 Heparin Sodium (Porcine) (Heparin) 3,900 unit 35 unit/kg (3900 unit) IVP Q6H PRN PRN Reason: SEE COMMENTS Stop: 06/30/18 20:44 Heparin Sodium/Dextrose (Heparin 25,000 Unit/500 Ml D5w) 25,000 unit in 500 mls @ 31.548 mls/hr IVC .[id number] ILANA; 14 UNIT/KG/HR PRN Reason: Protocol Stop: 06/30/18 20:46 Last Titration: 12/30/17 09:20 Dose: 10.87 unit/kg/hr, 24.5 mls/hr Losartan Potassium (Cozaar) 50 mg PO DAILY ILANA Stop: 07/01/18 09:01 Last Admin: 12/30/17 09:21 Dose: 50 mg Naloxone HCl (Narcan) 0.4 mg IVP Q2MIN PRN PRN Reason: SEE COMMENTS Stop: 06/30/18 18:06 Nitroglycerin (Nitroglycerin) 0.4 mg SL Q5MIN PRN PRN Reason: Chest Pain Stop: 06/30/18 18:45 Simvastatin (Zocor) 20 mg PO HS ILANA PRN Reason: Protocol Stop: 06/30/18 21:01 Last Admin: 12/29/17 20:06 Dose: 20 mg - Imaging and Cardiology Echo: pending - EKG Interpretation EKG results cardiology: personally reviewed (SR with PACs), other (12 hr tele AVG HR 73, no significant pauses or arrhythmias noted.) Consult Discharge Plan - Plan Referrals: Victoria Savage MD [Primary Care Provider] -
--- NOTE | 2017-12-30 10:57 | Internal Med Progress Note ---
<Sam Kaye - Last Filed: 12/30/17 11:00> Date of Encounter: 12/30/17 Time of Encounter: 09:30 - Assessment and plan (1) Saddle embolus of pulmonary artery Current Visit: Yes Status: Acute Assessment and plan: Patient experiencing shortness of breath for one month Reports one episode of right calf pain 2 weeks ago CTA performed last night shows saddle pulmonary embolus with findings suggestive of right heart strain Discussed possible transfer with [place] physician last night for possible EKOS therapy, did not feel it was necessary as patient is hemodynamically stable Patient placed on heparin drip Vitals remained stable Physical exam remarkable for slight increased calf girth of right calf Lower extremities Dopplers ordered Echocardiogram ordered to evaluate for degree of right heart strain Patient will likely need long-term anticoagulation We will discuss with patient and family following results of ECHO and dopplers Will transfer patient to area of hospital with greater observation Continue to monitor closely Qualifiers: Chronicity: acute Acute cor pulmonale presence: with acute cor pulmonale Qualified Code(s): I26.02 - Saddle embolus of pulmonary artery with acute cor pulmonale (2) Elevated troponin Current Visit: Yes Status: Acute Assessment and plan: Elevated troponin of 0.04, 0.06, and 0.04 likely result of saddle pulmonary embolism Cardiology is following Plan as above (3) Shortness of breath Current Visit: Yes Status: Acute Assessment and plan: Reported increase work of breathing and dyspnea result of saddle pulmonary embolus Supplemental oxygen as needed, wean as tolerated Plan as above - Subjective Interval history: Patient appears to be sitting on the side of the bed comfortably when seen this morning. She denies having any pleuritic pain or hemoptysis, but does report having some continued dyspnea that is worse with moving. She denies any chest pain, fevers, chills. Although she reports having had increased work of breathing for the past month, she reports 2 weeks ago she had an episode of some right calf pain. She described as a charley horse, but unlike usual charley horses this did not go away with standing. She had an echo performed on 10/09/2017 that showed: "Impressions: LVEF 60%. Mild left ventricular diastolic dysfunction. Normal right ventricular structure and function. No significant valvular dysfunction. No pulmonary hypertension." She was found to have a saddle pulmonary embolus last night on CTA of the chest. According to the notes from last night, she was considered for transfer to [place], but was declined because they did not feel that her treatment would be any different (as she has remained hemodynaically stable since admission). - Constitutional Vitals: Temp Pulse Resp BP Pulse Ox 97.8 F 82 16 133/81 95 12/30/17 10:35 12/30/17 10:35 12/30/17 10:35 12/30/17 10:35 12/30/17 10:35 General appearance: Present: A&O X 3, answers questions appropriately Exam: General: Cooperative, pleasant, no acute distress, alert and oriented 3, answers questions appropriately, nasal cannula in place HEENT: Normocephalic, atraumatic, Conjunctiva pink, sclera anicteric, oral mucosa moist Respiratory: No accessory muscle usage, clear to auscultation bilaterally, no wheezes/rhonchi/rales appreciated Cardiovascular: Regular rate and rhythm, S1 and S2 present, no murmurs/rubs/ gallops/clicks appreciated GI/abdominal: Nondistended, nontender, soft, normal bowel sounds, no peritoneal signs Extremities: No calf tenderness, noncyanotic, no pedal edema appreciated, warm, lower extremity pulses palpable and symmetrical, Homans sign negative, slightly increased calf girth of right lower extremity Neurological: Alert and oriented 3, no facial droop, no focal deficits Skin: Dry, intact, normal color Internal Medicine: Result - Labs CBC & Chem 7: 12/30/17 04:42 12/30/17 04:42 Labs: Short CBC 12/29/17 12/30/17 Range/Units 21:09 04:42 WBC 6.5 7.6 (4.3-11.1) K/mcL Hgb 13.4 13.1 (11.5-15.4) g/dL Hct 40.8 40.0 (35.3-44.9) % Plt Count 158 166 (140-400) K/mcL Neutrophils # 2.9 (1.6-8.9) K/mcL BMP 12/30/17 04:42 Sodium 138 Potassium 4.5 Chloride 105 Carbon Dioxide 24 BUN 16 Creatinine 0.61 Glucose 124 H Calcium 9.4 Cardiac Enzymes 12/29/17 12/30/17 Range/Units 21:09 04:42 Troponin I 0.06 H* 0.04 H* (< 0.04) ng/mL - ABG Interpretation ABG results: PT/INR, D-dimer PT 11.4 Seconds (9.4-12.1) 12/29/17 21:09 - Impressions Impressions Chest CTA 12/29/17 18:34 IMPRESSION: Saddle type embolus within the main pulmonary artery extending into bilateral pulmonary arterial branches. Heart is mildly enlarged with RV/LV ratio greater than 1 and reflux of contrast into the liver, suggesting right heart strain. Critical results were called by Dr. Loaiza to Dr. George On 12/29/2017 at 8 p.m. D/ / Rcihy Loaiza MD / Richy Loaiza MD Interpreting Provider: Richy Loaiza MD - VTE Reasons for not Prescribing Prophylaxis: Not indicated-Anticoagulated or INR therapeutic Consult Discharge Plan - Plan Referrals: Victoria Savage MD [Primary Care Provider] - <Serjio Lowe A - Last Filed: 12/30/17 19:13> Date of Encounter: 12/30/17 - Assessment and plan (1) Saddle embolus of pulmonary artery Current Visit: Yes Status: Acute Qualifiers: Chronicity: acute Acute cor pulmonale presence: without acute cor pulmonale Qualified Code(s): I26.92 - Saddle embolus of pulmonary artery without acute cor pulmonale (2) DVT (deep venous thrombosis) Current Visit: No Status: Acute Qualifiers: DVT location: lower extremity Affected thrombotic vein of extremity: popliteal Chronicity: acute Laterality: right Qualified Code(s): I82.431 - Acute embolism and thrombosis of right popliteal vein (3) HTN (hypertension) Current Visit: No Status: Chronic Qualifiers: Hypertension type: essential hypertension Qualified Code(s): I10 - Essential (primary) hypertension (4) Morbid obesity with BMI of 45.0-49.9, adult Current Visit: Yes Status: Chronic - Constitutional Vitals: Temp Pulse Resp BP Pulse Ox 98.2 F 74 15 179/84 95 12/30/17 16:54 12/30/17 16:54 12/30/17 16:54 12/30/17 16:54 12/30/17 16:54 Internal Medicine: Result - Labs CBC & Chem 7: 12/30/17 04:42 12/30/17 04:42 - ABG Interpretation ABG results: PT/INR, D-dimer PT 11.4 Seconds (9.4-12.1) 12/29/17 21:09 - Impressions Impressions Echocardiogram 12/30/17 13:30 Impressions: LVEF 60%. Normal LV chamber size, wall thickness and function. Mild left ventricular diastolic dysfunction. Atypical septal motion of unclear etiology. Normal right ventricular structure and function. RV:LV ratio < 1. No evidence of pulmonary hypertension identified. No significant valvular dysfunction. Left Ventricular Wall Motion: Rest Echo Findings All wall segments showed normal motion. Findings: Study Quality * Technically sub-optimal due to poor echocardiographic windows. ECG Findings * Normal sinus rhythm. Left Ventricle * LVEF 60%. * Normal LV chamber size, wall thickness and function. * Mild left ventricular diastolic dysfunction. * Atypical septal motion of unclear etiology. Right Ventricle * Normal right ventricular structure and function. * RV:LV ratio < 1. Left Atrium * Mildly dilated left atrium. Right Atrium * Normal right atrial size. Interatrial Septum * Interatrial septum not well evaluated. Aortic Valve * Trileaflet aortic valve with normal function. * No aortic regurgitation. * No aortic stenosis. Mitral Valve * Normal mitral valve structure and function. * No mitral stenosis. * Trace mitral regurgitation. Tricuspid Valve * Normal tricuspid valve structure and function. * Trace tricuspid regurgitation. * No evidence of pulmonary hypertension identified. Pulmonic Valve * Normal pulmonic valve structure and function. * No pulmonic regurgitation. Aorta * Normally sized aortic root. Pericardium * The pericardium appears normal. IVC * Normal IVC dimensions and inspiratory collapse. Pulmonary Artery * Pulmonary artery not well visualized. - Attending Attestation I examined this patient and my medical decision-making was reviewed with the Resident Physician on 12/30/17. I agree with the documented findings, disposition and treatment plan as described except to the extent set forth below. Ms Hernández is currently admitted for acute saddle pulmonary embolus and DVT. She remains high risk due to potential for worsening clinical status. She is currently on heparin drip. Ms Hernández is dyspneic with movement. No fever or chills. No cough. No CP at this time. Exam Alert Comfortable at rest Heart reg No wheeze Abd soft I/P 1. PE 2. DVT Further diagnoses and plan as above.
[2017-12-30] MEDS: Heparin 25,000 UNIT/500 ML D5W 25,000 UNIT/500 ML BAG IVC SCH (15:28)
--- NOTE | 2017-12-30 15:31 | Event Note ---
Date of Encounter: 12/30/17 Time of Encounter: 15:28 - Cardiology Event Note TTE completed. Reviewed with patient and family. No right heart strain seen. Preliminary BLE doppler positive for DVT in RLE. Discussed with Dr. Arreguin. IVC filter recommended and discussed with patient and family. Patient agreeable. NPO after midnight for filter. Anticoagulation per primary team.
--- NOTE | 2017-12-30 23:29 | Electrocardiograph Report ---
[place] [id number] Test Date: 2017-12-29 Pat Name: Saloni Hernández Department: 104 Room: 2N07 Gender: F [employer] Operations Manager: JERE : 1940 Requested By: Ambrocio Hammonds Order Number: [id number] Reading MD: Khai Gonzales DO Measurements Intervals [place] Rate: 83 P: 80 WV: 183 QRS: 18 QRSD: 88 T: 41 QT: 378 QTc: 417 Interpretive Statements SINUS RHYTHM WITH FREQUENT SUPRAVENTRICULAR PREMATURE COMPLEXES NONSPECIFIC ST-T CHANGES Electronically Signed On 12-30-2017 23:27:54 EDT by Khai Gonzales DO
[2017-12-31 04:58] LABS: Basophils % 0.6 %; Eosinophils # 0.2 K/mcL (0.0-0.6); Eosinophils % 3.2 %; Hematocrit 39.1 % (35.3-44.9); Hemoglobin 13.1 g/dL (11.5-15.4); Immature Granulocytes % 0.1 % (0-4); Lymphocytes % 43.9 %; Mean Corpuscular HGB Conc 33.5 g/dL (31.6-35.5); Mean Corpuscular Hemoglobin 32.2 pg (28.0-33.3); Mean Corpuscular Volume 96.1 fL (83.0-100.0); Mean Platelet Volume 10.5 fL (9.4-12.4); Monocytes # 0.7 K/mcL (0.0-1.3); Monocytes % 9.6 %; Neutrophils # 2.9 K/mcL (1.6-8.9); Platelet Count 158 K/mcL (140-400); Red Blood Count 4.07 M/mcL (3.82-4.97); Red Cell Distribution Width 12.8 % (11.5-14.5); Segmented Neutrophils % 42.6 %
[2017-12-31 05:16] LABS: BUN/Creatinine Ratio 26 (6-26); Blood Urea Nitrogen 16 mg/dL (8-23); Calcium 9.5 mg/dL (8.6-10.3); Carbon Dioxide 26 mEq/L (23-29); Chloride 105 mEq/L (98-107); Glucose 132 mg/dL (70-105); Osmolality,Calculated 287 (280-300); Potassium 4.6 mEq/L (3.5-5.1); Sodium 137 mEq/L (136-145); eGFR For African Americans > 60 (> 60); eGFR For Non-African Americans > 60 (> 60)
--- NOTE | 2017-12-31 08:48 | Vascular/Endovasc Consult Note ---
Date of Encounter: 12/31/17 Time of Encounter: 08:30 Assessment and Plan (1) Saddle embolus of pulmonary artery Current Visit: Yes Status: Acute The patient was recently admitted and found to have a pulmonary embolus. She was also found to have a right lower extremity DVT. The patient is currently on 2L O2 and reports decreased shortness of breath. She denies any chest pain at this time. Her venous thromboembolism appears to be unprovoked. Oral anticoagulation is recommended. Given the size of her pulmonary embolus and her residual DVT and inferior vena cava filter may benefit the patient. The risks and benefits of inferior vena cava filter placement were discussed with the patient and her family and all questions were answered. The patient desires to have an inferior vena cava filter placed. She has been scheduled for the procedure. Qualifiers: Chronicity: acute Acute cor pulmonale presence: without acute cor pulmonale Qualified Code(s): I26.92 - Saddle embolus of pulmonary artery without acute cor pulmonale (2) DVT (deep venous thrombosis) Current Visit: No Status: Acute Qualifiers: DVT location: lower extremity Affected thrombotic vein of extremity: popliteal Chronicity: acute Laterality: right Qualified Code(s): I82.431 - Acute embolism and thrombosis of right popliteal vein (3) HTN (hypertension) Current Visit: No Status: Chronic She was counseled regarding atherosclerotic risk factor reduction. Qualifiers: Hypertension type: essential hypertension Qualified Code(s): I10 - Essential (primary) hypertension (4) Morbid obesity with BMI of 45.0-49.9, adult Current Visit: Yes Status: Chronic - History of Present Illness Consult date: 12/31/17 Requesting physician: Serjio Lowe Consult reason: Pulmonary embolus, DVT Chief complaint: Shortness of breath History of present illness: Ms. Hernánedz is a 77 year old female with a history of hypertension who reports that she developed leg edema approximately 2 weeks ago. She then developed progressively worsening shortness of breath. The patient present to the ER and was found to have a pulmonary embolus. She was treated with anticoagulation. She was admitted and found to have deep vein thrombosis as well. Since admission, she remains on 2L O2. She reports that her shortness of breath has improved. Vascular Surgery was consulted for possible inferior vena cava filter placement. She denies chest pain. Past Med Surg Social Fam HX - Past Medical History Medical history: DVT, hyperlipidemia, hypertension, pulmonary embolus, other Psychiatric history: no psych history - Past Surgical History Surgical History: cataract, orthopedic, other, other - Social History Smoking Status: Never smoker Alcohol use: none Drug use: none - Family History Father Hx Family Cardiac Disorders: Yes Mother Living Status: Sister Hx Family Cancer: Yes (tonsil) Brother Hx Family Cancer: Yes (lung) Medications and Allergies Aspirin Enteric Coated [Aspirin EC] 81 mg PO DAILY 12/29/17 [History] Calcium Carbonate [Calcium] 600 mg PO BID 12/29/17 [History] Flaxseed Oil [[place]-3 Flaxseed Oil] 1,000 mg PO DAILY 12/29/17 [History] Glucosamine Sulfate Dipot Chlr [Glucosamine] 1,000 mg PO DAILY 12/29/17 [History ] Losartan Potassium [Cozaar] 50 mg PO DAILY 12/29/17 [History] Multivitamin [One Daily Multivitamin] 1 each PO DAILY 12/29/17 [History] Simvastatin [Zocor] 20 mg PO HS 12/29/17 [History] 3 Allergy/AdvReac Type Severity Reaction Status Date / Time Penicillins Allergy Hives Verified 04/02/17 11:08 acetaminophen [From Percocet] AdvReac Vomiting Verified 04/02/17 11:08 celecoxib [From Celebrex] AdvReac Palpitation Verified 04/02/17 11:08 s clindamycin AdvReac Heartburn Verified 04/02/17 11:08 Erythromycin Base AdvReac Heartburn Verified 04/02/17 11:08 hydrocodone [From Vicodin] AdvReac Vomiting Verified 04/02/17 11:08 naproxen [From Naprosyn] AdvReac Palpitation Verified 04/02/17 11:08 s NSAIDS (Non-Steroidal AdvReac Palpitation Verified 04/02/17 11:08 Anti-Inflamma s Oxycodone [From Percocet] AdvReac Vomiting Verified 04/02/17 11:08 propoxyphene AdvReac Vomiting Verified 04/02/17 11:08 [From Darvocet-N] All Systems Review: The remainder of the systems were reviewed and are negative - Constitutional Constitutional: no chills, no fever(s) - Cardiovascular Cardiovascular: dyspnea at rest (resolving), no chest pain at rest - Respiratory Respiratory: no cough - Gastrointestinal Gastrointestinal: no abdominal pain Exam Vital Signs, Last 4 Hours Temp Pulse Resp BP Pulse Ox 12/31/17 07:34 98.4 F 79 16 139/74 94 General: Present: Conversant, No Apparent Distress HEENT: Present: Atraumatic, Trachea midline, Pupils equal Neck: Absent: JVD, Lymphadenopathy, Left Carotid bruit, Right Carotid bruit Cardiac: Present: Reg Rate and Rhythm, Normal S1 and S2 Lungs: Present: Normal Breath Sounds, No Wheeze, Rales, Rhonchi Neuro: Present: Alert and responsive, No focal deficits noted, Motor nerves grossly intact, Sensory nerves grossly intact Abdomen: Present: Soft, Non-tender. Absent: Masses Vascular: Present: Normal capillary refill, Pulse, normal, Edema (trace right lower extremity edema). Absent: Cyanosis Skin: Present: No rashes noted on visualized skin Consult Discharge Plan - Plan Referrals: Victoria Savage MD [Primary Care Provider] -
--- NOTE | 2017-12-31 09:00 | Event Note ---
Date of Encounter: 12/31/17 Time of Encounter: 08:57 - Cardiology Event Note Echo resulted--no evidence of right heart strain. LE dopplers positive for acute DVT in right superficial femoral and popliteal veins. IVC filter was recommended. Pt prefers Dr. Orozco to perform the procedure. Cardiology signing off. Reconsult PRN.
--- NOTE | 2017-12-31 09:40 | Internal Med Progress Note ---
<Sam Kaye - Last Filed: 12/31/17 09:41> Date of Encounter: 12/31/17 Time of Encounter: 09:15 - Assessment and plan (1) Saddle embolus of pulmonary artery Current Visit: Yes Status: Acute Assessment and plan: Patient experiencing shortness of breath for one month Reports one episode of right calf pain 2 weeks ago CTA performed last night shows saddle pulmonary embolus with findings suggestive of right heart strain Discussed possible transfer with [place] physician last night for possible EKOS therapy, did not feel it was necessary as patient is hemodynamically stable Bilateral Doppler showed DVT in right SFV and popliteal veins TTE performed does not show right heart strain Patient placed on heparin drip Vitals remained stable Physical exam remarkable for slight increased calf girth of right calf Plan for IVC filter placed today Discussed the different options of anticoagulation with the patient, she is unsure currently but appears to favor Xarelto We will obtain lane check of Xarelto Patient will likely need qualification for home O2 We will obtain tomorrow after IVC filter placement today Will transfer patient to area of hospital with greater observation Continue to monitor closely Qualifiers: Chronicity: acute Acute cor pulmonale presence: without acute cor pulmonale Qualified Code(s): I26.92 - Saddle embolus of pulmonary artery without acute cor pulmonale (2) Elevated troponin Current Visit: Yes Status: Acute Assessment and plan: Elevated troponin of 0.04, 0.06, and 0.04 likely result of saddle pulmonary embolism Cardiology is following Plan as above (3) Shortness of breath Current Visit: Yes Status: Acute Assessment and plan: Reported increase work of breathing and dyspnea result of saddle pulmonary embolus Supplemental oxygen as needed, wean as tolerated Plan as above - Subjective Interval history: Patient doing well today with no concerns/complaints. She denies tenderness in her lower extremities, denies chest pain, denies pleuritic pain, reports chronic cough that is nonproductive. She does not know how much difficulty she has with moving, as she does not move after finding the lower extremity DVT. One going to the bathroom last night before with Doppler she was slightly dyspneic, but said she felt better with oxygen. - Constitutional Vitals: Temp Pulse Resp BP Pulse Ox 98.4 F 79 16 139/74 94 12/31/17 07:34 12/31/17 07:34 12/31/17 07:34 12/31/17 07:34 12/31/17 07:34 General appearance: Present: A&O X 3, answers questions appropriately Exam: General: Cooperative, pleasant, no acute distress, alert and oriented 3, answers questions appropriately, nasal cannula in place HEENT: Normocephalic, atraumatic, Conjunctiva pink, sclera anicteric, oral mucosa moist Respiratory: No accessory muscle usage, clear to auscultation bilaterally, no wheezes/rhonchi/rales appreciated Cardiovascular: Regular rate and rhythm, S1 and S2 present, no murmurs/rubs/ gallops/clicks appreciated GI/abdominal: Nondistended, nontender, soft, normal bowel sounds, no peritoneal signs Extremities: No calf tenderness, no pedal edema appreciated, warm, lower extremity pulses palpable and symmetrical, Homans sign negative, slightly increased calf girth of right lower extremity Neurological: Alert and oriented 3, no facial droop, no focal deficits Skin: Dry, intact, normal color Internal Medicine: Result - Labs CBC & Chem 7: 12/31/17 04:21 12/31/17 04:21 Labs: Short CBC 12/31/17 Range/Units 04:21 WBC 6.8 (4.3-11.1) K/mcL Hgb 13.1 (11.5-15.4) g/dL Hct 39.1 (35.3-44.9) % Plt Count 158 (140-400) K/mcL Neutrophils # 2.9 (1.6-8.9) K/mcL BMP 12/31/17 04:21 Sodium 137 Potassium 4.6 Chloride 105 Carbon Dioxide 26 BUN 16 Creatinine 0.62 Glucose 132 H Calcium 9.5 - ABG Interpretation ABG results: PT/INR, D-dimer PT 11.4 Seconds (9.4-12.1) 12/29/17 21:09 - Impressions Impressions Echocardiogram 12/30/17 13:30 Impressions: LVEF 60%. Normal LV chamber size, wall thickness and function. Mild left ventricular diastolic dysfunction. Atypical septal motion of unclear etiology. Normal right ventricular structure and function. RV:LV ratio < 1. No evidence of pulmonary hypertension identified. No significant valvular dysfunction. Left Ventricular Wall Motion: Rest Echo Findings All wall segments showed normal motion. Findings: Study Quality * Technically sub-optimal due to poor echocardiographic windows. ECG Findings * Normal sinus rhythm. Left Ventricle * LVEF 60%. * Normal LV chamber size, wall thickness and function. * Mild left ventricular diastolic dysfunction. * Atypical septal motion of unclear etiology. Right Ventricle * Normal right ventricular structure and function. * RV:LV ratio < 1. Left Atrium * Mildly dilated left atrium. Right Atrium * Normal right atrial size. Interatrial Septum * Interatrial septum not well evaluated. Aortic Valve * Trileaflet aortic valve with normal function. * No aortic regurgitation. * No aortic stenosis. Mitral Valve * Normal mitral valve structure and function. * No mitral stenosis. * Trace mitral regurgitation. Tricuspid Valve * Normal tricuspid valve structure and function. * Trace tricuspid regurgitation. * No evidence of pulmonary hypertension identified. Pulmonic Valve * Normal pulmonic valve structure and function. * No pulmonic regurgitation. Aorta * Normally sized aortic root. Pericardium * The pericardium appears normal. IVC * Normal IVC dimensions and inspiratory collapse. Pulmonary Artery * Pulmonary artery not well visualized. - VTE Reasons for not Prescribing Prophylaxis: Not indicated-Anticoagulated or INR therapeutic Consult Discharge Plan - Plan Referrals: Victoria Bautista [Other] - 01/06/18 11:45 am (This is beside [place] [facility] [past [facility]]) <Serjio Lowe - Last Filed: 12/31/17 18:30> Date of Encounter: 12/31/17 - Assessment and plan (1) Saddle embolus of pulmonary artery Current Visit: Yes Status: Acute Qualifiers: Chronicity: acute Acute cor pulmonale presence: without acute cor pulmonale Qualified Code(s): I26.92 - Saddle embolus of pulmonary artery without acute cor pulmonale (2) DVT (deep venous thrombosis) Current Visit: No Status: Acute Qualifiers: DVT location: lower extremity Affected thrombotic vein of extremity: popliteal Chronicity: acute Laterality: right Qualified Code(s): I82.431 - Acute embolism and thrombosis of right popliteal vein (3) HTN (hypertension) Current Visit: No Status: Chronic Qualifiers: Hypertension type: essential hypertension Qualified Code(s): I10 - Essential (primary) hypertension (4) Morbid obesity with BMI of 45.0-49.9, adult Current Visit: Yes Status: Chronic (5) Acute respiratory failure with hypoxia Current Visit: Yes Status: Acute Assessment and plan: Will set up home oxygen. Hopefully will improve in future. - Constitutional Vitals: Temp Pulse Resp BP Pulse Ox 97.9 F 66 16 162/81 91 12/31/17 11:00 12/31/17 15:30 12/31/17 11:00 12/31/17 15:30 12/31/17 16:32 Internal Medicine: Result - Labs CBC & Chem 7: 12/31/17 04:21 12/31/17 04:21 Labs: Short CBC 12/31/17 Range/Units 04:21 WBC 6.8 (4.3-11.1) K/mcL Hgb 13.1 (11.5-15.4) g/dL Hct 39.1 (35.3-44.9) % Plt Count 158 (140-400) K/mcL Neutrophils # 2.9 (1.6-8.9) K/mcL BMP 12/31/17 04:21 Sodium 137 Potassium 4.6 Chloride 105 Carbon Dioxide 26 BUN 16 Creatinine 0.62 Glucose 132 H Calcium 9.5 - ABG Interpretation ABG results: PT/INR, D-dimer PT 11.4 Seconds (9.4-12.1) 12/29/17 21:09 - Attending Attestation I examined this patient and my medical decision-making was reviewed with the Resident Physician on 12/31/17. I agree with the documented findings, disposition and treatment plan as described except to the extent set forth below. Ms Hernández is currently admitted for DVT and saddle PE. She is to have IVC filter today. She remains high risk due to potential for worsening clinical status. Ms Hernández is up in chair. Feels she is breathing better. Needs oxygen at discharge. No fever. No CP. To have IVC filter today. Exam alert Comfortable Mucus membranes dry Heart reg Lungs diminished Abd soft I/P 1. PE 2. DVT Resp failure - needs oxygen at discharge Further diagnoses and plan as above.
[2017-12-31] MEDS: Aspirin Enteric Coated 81 MG Tablet PO SCH (09:41)
[2017-12-31] MEDS: Heparin 25,000 UNIT/500 ML D5W 25,000 UNIT/500 ML BAG IVC SCH (11:08)
[2017-12-31 11:52] LABS: Activated Partial Thrombo Time 136.6 Seconds (26.0-36.0)
[2017-12-31 11:54] LABS: Heparin anti-factor XA UFH 0.88 IU/mL (0.30-0.70)
[2017-12-31] MEDS ORDERED: Heparin 1,000 UNITS/500 mL 500 ML ONE (12:23)
[2017-12-31] MEDS ORDERED: ISOVUE-250 150 ML INFUS..BTL IV ONE (12:23)
[2017-12-31] MEDS ORDERED: 0.9 % Sodium Chloride 500 ML ONE (13:23)
--- NOTE | 2017-12-31 13:33 | Pre-Sedation Evaluation ---
Pre-sedation evaluation - Pre-sedation checklist Date of procedure: 12/31/17 Procedure: ivc filter Recent Vitals: Last Vital Signs Temp 97.9 F 12/31/17 11:00 Pulse 70 12/31/17 11:00 Resp 16 12/31/17 11:00 BP 135/72 12/31/17 11:00 Pulse Ox 97 12/31/17 11:00 H&P (including ROS) documented in medical record: Yes Previous reaction to sedatives/anesthetics: No Dietary Status: NPO 6 hours prior to procedure Dentition: No loose teeth or bridges ASA Classification *see protocol: CLASS III-Severe systemic disease Plan of Care: Pt appropriate candidate for procedure/moderate/conscious sedation , Risks/benefits of procedure/sedation discussed w/ patient/family
--- NOTE | 2017-12-31 14:05 | Invasive Diagnostic Lab Proc ---
Name: Saloni Hernández Date of Study: 12/31/2017 Date: 1940 Ht: 157.0 in Medical Record#: [id number] Age: 77 Wt: 114 lb Gender: Female BSA: 2.1 Order #: [id number] BMI: 46.25 Physicians Performing MD: Art Orozco MD Referring MD: Referring MD: Staff Name Position Time In Walker Prabhakar RT (R) Monitor Walker Prabhakar RT (R) Scrub Austin Hernandez RN Public Health Nutritionist Indications Pulmonary Embolism DVT, Unilateral Procedures Performed IVC FILTER PLACEMENT Pre-Procedure Checklist Informed consent is complete signed and on chart. H&P is on chart. ID band is on and ID verified with patient. Patient NPO for procedure The procedure was described for the patient and questions were answered. ECG is on chart. Plan of Care Patient will tolerate the procedure without complications. Adequate level of comfort will be maintained. Hemodynamics will remain stable Patient will recover from procedure without complications. Respiratory function will be maintained. Cardiac rhythm will remain stable. Patient temperature will be maintained. Patient and/or family have verbalized understanding of the procedure. Patient Education Chief Complaint/Reason for Test: IVC filter Developmental Category: Geriatric (65+ years) Learning Barriers: None Education Needs: Procedure Education Method: Verbal Information Taught: Peripheral angiogram Educational Evaluation: Able to repeat information Intravenous Access Time IV Size Location DC'd Fluid/Drip Rate Units RN 13:48 20g 1 1/4" Patent On Arrival Rt Arm 0.9NaCl 25 ml/hr Allergies Celecoxib Erythromycin Acetaminophen PCN, PERCOCET, DARVOCET Penicillin NSAIDS (Non-Steroidal Anti-Inflamma Penicillins hydrocodone Oxycodone propoxyphene Naproxen Vital Signs Time BP Systolic BP Diastolic HR O2 Sats ASA 01:29 PM 01:29 PM 01:50 PM 173 91 75 90 01:55 PM 173 89 76 89 01:29 PM 115 98 81 90 01:35 PM 160 81 75 90 01:40 PM 179 81 78 91 01:45 PM 156 96 73 87 Procedure Medications Time Medication Dose Units Method Route 01:29 PM Oxygen 2 L/min nasal cannula 01:39 PM Lidocaine 2% 5 ml Subcutaneous Eli Score Preprocedure Postprocedure Activity 2- Moves 4 extremities sustained head lift Activity 2- Moves 4 extremities sustained head lift Circulation 2- SBP +/= 20 points of pre-anesthetic level Circulation 2- SBP +/= 20 points of pre-anesthetic level Consciousness 2- Awake and alert oriented x 3 Consciousness 2- Awake and alert oriented x 3 O2 Saturation 2- Able to maintain O2 satruation of 92% on room air O2 Saturation 2- Able to maintain O2 satruation of 92% on room air Respiratory 2- Able to deep breathe and cough well Respiratory 2- Able to deep breathe and cough well Total Score 10 Total Score 10 Contrast: Isovue 250- 150ml Contrast Amount: 8 ml Fluoro Dose: 475 mGy Procedure Log Time Note Entered By 01:03 PM Pt arrived to dental laboratory supervisor 1 at 13:03 [email or web address] 01:03 PM Paige Rogers Position: Monitor Time in: 13: [email or web address] 01:04 PM Walker Prabhakar RT (R) Position: Scrub Time in: 13: [email or web address] 01:04 PM Austin Hernandez RN Position: Public Health Nutritionist Time in: 13:04 [email or web address] 01:04 PM Case delayed: No kkallner :04 PM Hair removed from procedure site in procedure lab using clippers. Bilateral groin prepped with Chloraprep by Paige Rogers RT, then patient was draped. Skin intact. [email or web address] 01:04 PM Physician paged/called 13:04 kkallner :04 PM Physican responded and notified patient is ready 13:04 [email or web address] 01:25 PM Physician arrived 13:25 kkallner :29 PM Meet and greet completed kkallner :29 PM Sign in performed according to hospital policy. kkallner :29 PM Procedure start 13:29 kkallner :29 PM 13:29 Oxygen at 2 L/min per nasal cannula by Austin Hernandez RN kkallner :29 PM Time: 13:29 Is patient comfortable and pain free?: Yes kkallner :29 PM Time: 13:29LOC: 5 = Fully awake and oriented or at pre-proc level kkallner :29 PM Patient charges- Angio tray pack, Pulse Oximetry and ACIST tubing and transducer kkallner :29 PM Ultrasound, Sonosite, utilized to obtain vascular access kkallner 01:36 PM Time out perfomed [email or web address] 01:39 PM 13:39 5 ml Lidocaine 2% to right groin Subcutaneous Given By Art Orozco MD kkner 01:40 PM Access obtain and IVC Filter sheath inserted Rt Femoral vein. [email or web address] 01:40 PM Patient Charges- Cook Celect IVC Filter ,Tray Pack and Pulse Oximetry. kkallner :44 PM IVC Filter inserted into the inferior vena cava [email or web address] 01:42 PM Isovue 250- 150ml contrast 4 ml given by Art Orozco MD kkner 01:43 PM Isovue 250- 150ml contrast 4 ml given by Art Orozco MD kkner :44 PM Time: 13:29LOC: 5 = Fully awake and oriented or at pre-proc level kk:44 PM Time: 13:29 Is patient comfortable and pain free?: Yes kk 01:46 PM Procedure completed at 13:46 kkallner :47 PM Sign Out completed: Radiation Dose 474.97 mGy Fluoro Time: .8 minutes. Isovue 250- 150ml contrast 8 ml given by Art Orozco MD. Complications: None. Confirmed administered medications:Yes ner :47 PM Isovue 250- 150ml,1 bottle(s) used. [email or web address] 01:47 PM Arterial sheath pulled using manual compression and for 10 minutes by Walker Prabhakar RT (R) kk:47 PM Estimated Blood Loss: minimal [email or web address] 01:47 PM Post Blood Pressure: 156/96 kkallner 01:47 PM Post EKG: Sinus Arrhythmia kkallner 01:49 PM 13:49 Post Pulses: Bilateral DP & PT 2+. [email or web address] 01:49 PM Information taught: IVC filter kkallner 01:49 PM Education needs: Procedure, Plan of Care, and Responsibilities of Patient in Care kkallner 01:49 PM Learning barriers: None kkallner 01:49 PM Education methods: Verbal kkallner 01:49 PM Education evaluation: Able to repeat information kkallner 01:49 PM Patient pain level 0/10 kkallner 01:49 PM Site status No bleeding/hematoma - Rt Groin as reported by Walker Prabhakar RT (R) at 13:49 [email or web address] 01:50 PM Opsite applied kkallner 01:50 PM Delay to floor: No kkallner 01:50 PM Pt taken to 2N Room# 7 [email or web address] 01:50 PM family stayed in patient room kkallner 01:50 PM Complications: None kkallner 01:50 PM Fluoro Time: .8 minutes kkner 01:50 PM Isovue 250- 150ml contrast 8 ml given by Art Orozco MD kkallner 01:50 PM Radiation Dose 474.97 mGy kkallner 01:55 PM Patient out of room 13:55 [email or web address] 01:55 PM Report given to Madisyn WARREN. Pt taken to , [facility] PM PVIStat 01:28 PM Vitals capture started with the following parameters, Patient=Adult, Interval=5 min, Initial Giiwhmvw=453 mmHg, Deflation Rate=3 mmHg, Cuff placed on Right Arm 01:29 PM HR=81 bpm, DZXG=237/98 mmhg, SpO2=90 %, Resp=21 B/min 01:35 PM HR=75 bpm, TDWE=784/81 mmhg, SpO2=90.0 %, Resp=23 B/min 01:40 PM HR=78 bpm, JIHI=758/81 mmhg, SpO2=91.0 %, Resp=18 B/min 01:45 PM HR=73 bpm, UULT=415/96 mmhg, SpO2=87.0 %, Resp=16 B/min 01:50 PM HR=75 bpm, JEMV=371/91 mmhg, SpO2=90.0 %, Resp=20 B/min 01:55 PM HR=76 bpm, CSJJ=148/89 mmhg, SpO2=89.0 %, Resp=19 B/min Post Procedure Information Blood Pressure: 156/96 mmHg Rhythm: Sinus Arrhythmia Post procedure instructions given Report Given To: Isra Site Checks Time Location Status Staff Sheath In? Note 1:49:00 PM Rt Walker Elizabeth RT (R) Pulses Time Site Pre Procedure Post Procedure Note 1:49:00 PM Bilateral DP & PT 2+ Updated by RT Dinorah Linares) on 12/31/2017 1:58:47 PM electronically signed on 12/31/2017 1:59:12 PM with status of Final
--- NOTE | 2017-12-31 14:18 | Procedure Note ---
Date of procedure: 12/31/17 Pre-op diagnosis: Deep Vein thrombosis and pulmonary embolus Post-op diagnosis: same Procedure: Venacavagram and placement of Celect Inferior Vena Cava Filter via right common femoral vein. Direct pressure held for hemostasis. Anesthesia: local Surgeon: Art Orozco Was there an assistant women's soccer coach present: No Estimated blood loss (cc): 1 Specimen: None Pathology: none sent Condition: stable Disposition: floor
[2017-12-31] MEDS: *HR* Rivaroxaban 15 MG TABLET PO SCH ×2 (16:26→16:36)
[2018-01-01 06:22] LABS: Basophils % 0.4 %; Eosinophils # 0.2 K/mcL (0.0-0.6); Eosinophils % 3.1 %; Hematocrit 38.3 % (35.3-44.9); Hemoglobin 12.7 g/dL (11.5-15.4); Immature Granulocytes % 0.2 % (0-4); Lymphocytes % 36.1 %; Mean Corpuscular HGB Conc 33.2 g/dL (31.6-35.5); Mean Corpuscular Hemoglobin 32.1 pg (28.0-33.3); Mean Corpuscular Volume 96.7 fL (83.0-100.0); Mean Platelet Volume 10.2 fL (9.4-12.4); Monocytes # 0.6 K/mcL (0.0-1.3); Neutrophils # 2.7 K/mcL (1.6-8.9); Platelet Count 155 K/mcL (140-400); Red Blood Count 3.96 M/mcL (3.82-4.97); Segmented Neutrophils % 49.2 %
[2018-01-01 06:46] LABS: BUN/Creatinine Ratio 25 (6-26); Blood Urea Nitrogen 15 mg/dL (8-23); Calcium 9.2 mg/dL (8.6-10.3); Carbon Dioxide 25 mEq/L (23-29); Chloride 105 mEq/L (98-107); Glucose 129 mg/dL (70-105); Osmolality,Calculated 289 (280-300); Potassium 4.2 mEq/L (3.5-5.1); Sodium 138 mEq/L (136-145); eGFR For African Americans > 60 (> 60); eGFR For Non-African Americans > 60 (> 60)
--- NOTE | 2018-01-01 08:54 | Discharge Summary ---
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 Hernández is a 77 year old female with prior medical history of hyperlipidemia and hypertension who presented to [facility] on 12/29/17 with increased shortness of breath with exertion. Her previous workups including chest x-ray, echo, and PFTs were normal. She reports her shortness of breath have been worsening the past month as well as having an episode of right calf pain. Upon presentation she required nasal cannula to maintain oxygen saturation, but was hemodynamically stable otherwise. She was found to have a saddle pulmonary embolus via chest CT and was started on heparin drip. An echocardiogram was performed this did not reveal any right heart strain. With continued workup she was found to have a right lower extremity DVT and it was felt that she required a IVC filter. Her IVC filter was placed and patient was started on Xarelto. During her time, she remained hemodynamically stable, though was qualified for home oxygen at night and during ambulation. At this time she is safe/stable for discharge with continued anticoagulation with Xarelto and continued home oxygen, to be reassessed by PCP as outpatient. - Time Spent with Patient Total time spent providing and/or coordinating discharge services: Greater than 30 minutes - Discharge Medications Home Medications: Aspirin Enteric Coated [Aspirin EC] 81 mg PO DAILY 12/29/17 [History] Calcium Carbonate [Calcium] 600 mg PO BID 12/29/17 [History] Flaxseed Oil [[place]-3 Flaxseed Oil] 1,000 mg PO DAILY 12/29/17 [History] Glucosamine Sulfate Dipot Chlr [Glucosamine] 1,000 mg PO DAILY 12/29/17 [History ] Losartan Potassium [Cozaar] 50 mg PO DAILY 12/29/17 [History] Multivitamin [One Daily Multivitamin] 1 each PO DAILY 12/29/17 [History] Simvastatin [Zocor] 20 mg PO HS 12/29/17 [History] Rivaroxaban [Xarelto] 15 mg PO BID tablet 01/01/18 [Rx] Allergies/Adverse Reactions: 3 Allergy/AdvReac Type Severity Reaction Status Date / Time Penicillins Allergy Hives Verified 04/02/17 11:08 acetaminophen [From Percocet] AdvReac Vomiting Verified 04/02/17 11:08 celecoxib [From Celebrex] AdvReac Palpitation Verified 04/02/17 11:08 s clindamycin AdvReac Heartburn Verified 04/02/17 11:08 Erythromycin Base AdvReac Heartburn Verified 04/02/17 11:08 hydrocodone [From Vicodin] AdvReac Vomiting Verified 04/02/17 11:08 naproxen [From Naprosyn] AdvReac Palpitation Verified 04/02/17 11:08 s NSAIDS (Non-Steroidal AdvReac Palpitation Verified 04/02/17 11:08 Anti-Inflamma s Oxycodone [From Percocet] AdvReac Vomiting Verified 04/02/17 11:08 propoxyphene AdvReac Vomiting Verified 04/02/17 11:08 [From Darvocet-N] Date of admission: 12/30/17 08:57 Primary care physician: Victoria Webb Discharging clinician: Sam Kaye Anticipated date of discharge: 01/01/18 - Constitutional Vitals: Temp Pulse Resp BP Pulse Ox 98.0 F 72 16 140/76 93 01/01/18 07:32 01/01/18 07:32 01/01/18 07:32 01/01/18 07:32 01/01/18 08:40 General appearance: Present: A&O X 3, answers questions appropriately Exam: General: Cooperative, pleasant, no acute distress, alert and oriented 3, answers questions appropriately, nasal cannula in place HEENT: Normocephalic, atraumatic, Conjunctiva pink, sclera anicteric, oral mucosa moist Respiratory: No accessory muscle usage, clear to auscultation bilaterally, no wheezes/rhonchi/rales appreciated Cardiovascular: Regular rate and rhythm, S1 and S2 present, no murmurs/rubs/ gallops/clicks appreciated GI/abdominal: Nondistended, nontender, soft, normal bowel sounds, no peritoneal signs Extremities: No calf tenderness, no pedal edema appreciated, warm, lower extremity pulses palpable and symmetrical, Homans sign negative, slightly increased calf girth of right lower extremity Neurological: Alert and oriented 3, no facial droop, no focal deficits Skin: Dry, intact, normal color - Patient Status Disposition: Home, Self-Care Condition: Fair Functional capacity at discharge: independent ambulation Overall status at discharge: patient is progressing back to baseline - Discharge Instructions Instructions: Myocardial Infarction (DC), Chest Pain (DC), Pulmonary Embolism ( DC), Acute Respiratory Distress Syndrome (DC), Inferior Vena Cava Filter Placement (DC), Inferior Vena Cava Filter Placement (GEN) Follow Up With: Victoria Bautista [Other] - 01/06/18 11:45 am (This is beside [facility] [past [facility]]) Additional Instructions: Please follow up with your PCP as scheduled (01/06/18) Return to ER if worsening shortness of breath, fatigue, lightheadedness, development of cough with blood, development of chest pain with cough or deep breathing. 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 Qualifiers: Chronicity: acute Acute cor pulmonale presence: without acute cor pulmonale Qualified Code(s): I26.92 - Saddle embolus of pulmonary artery without acute cor pulmonale (2) Acute respiratory failure with hypoxia Status: Chronic (3) DVT (deep venous thrombosis) Priority: Primary Status: Acute Qualifiers: DVT location: lower extremity Affected thrombotic vein of extremity: popliteal Chronicity: acute Laterality: right Qualified Code(s): I82.431 - Acute embolism and thrombosis of right popliteal vein (4) HTN (hypertension) Priority: Secondary Status: Chronic Qualifiers: Hypertension type: essential hypertension Qualified Code(s): I10 - Essential (primary) hypertension (5) Morbid obesity with BMI of 45.0-49.9, adult Priority: Secondary Status: Chronic Hospital course: Ms. Hernández is a 77 year old female - Time Spent with Patient Total time spent providing and/or coordinating discharge services: 39min Date of admission: 12/30/17 08:57 Primary care physician: [facility] - Constitutional Vitals: Temp Pulse Resp BP Pulse Ox 98.2 F 71 18 145/77 95 01/01/18 11:24 01/01/18 11:24 01/01/18 11:24 01/01/18 11:24 01/01/18 11:24 - Attending Attestation I examined this patient and my medical decision-making was reviewed with the Resident Physician on 01/01/18. I agree with the documented findings, disposition and treatment plan as described except to the extent set forth below. Ms Hernández has been admitted for acute saddle PE and hypoxia. She is afebrile at this time. She is up and about in room. She has required oxygen and this is set up for home. She has tolerated Xarelto and no issues with IVC filter yesterday. She is ready for discharge home. Exam alert Comfortable Mucus membranes dry Heart distant Lungs clear Plan D/C home today with outpatient follow up
[2018-01-01] MEDS: *HR* Rivaroxaban 15 MG TABLET PO SCH (09:10)
[2018-01-01] MEDS: Aspirin Enteric Coated 81 MG Tablet PO SCH (09:10)
[2018-01-01 11:28] VITALS: BP 145/77
== END 2018-01-01 13:19 | disposition home or self-care (01) | DRG 166 ==
LOC: EMEROO 13:35 → 3BNU 13:35 → SUATTDRO 17:41 → 3BNU 17:57 → 2NNU 12-30 16:23
PROVIDERS: ADMIT Student in an Organized Health Care Education/Training Program; ATTEND Internal Medicine